=== PATIENT | male | born 1985 | race Caucasian/White ===

== ENCOUNTER 2019-02-15 16:55 | Outpatient (REF) | payer MEDICARE, MEDICAID, SELFPAY ==
[2019-02-15 20:43] LABS: HGB 14.2 g/dL (13.5-17.5); Mean Corpuscular Volume 90.9 fL (80-95); Mean Platelet Volume 9.6 fL (8.0-11.0); Platelet Count 275 x1000/uL (130-400); RBC 4.73 m/cumm (4.50-6.00); RBC Distribution Width 12.8 % (11.8-14.1); White Blood Cell Count 9.97 k/cumm (4.4-10.8)
[2019-02-15 20:54] LABS: ALT 24 U/L (16-63); AST 17 U/L (15-37); Albumin 4.2 g/dL (3.4-5.0); Alkaline Phosphatase 123 U/L (46-116); Anion Gap 9.5 mmol/L (3-11); BUN 13 mg/dL (7-18); Bilirubin, Total 0.4 mg/dL (0.2-1.0); CO2 28.5 mmol/L (21.0-32.0); CREATININE 1.01 mg/dL (0.70-1.30); Calcium 8.9 mg/dL (8.5-10.1); Calculated LDL 87 mg/dL; Chloride 102 mmol/L (98-107); Cholesterol 158 mg/dL (50-200); Glucose 89 mg/dL (70-100); HDL Cholesterol 50 mg/dL (40-60); Potassium 4.1 mmol/L (3.5-5.1); Sodium 140 mmol/L (136-145); Total Protein 7.7 g/dL (6.4-8.2); Triglyceride 108 mg/dL (30-150)
== END 2019-02-15 17:15 ==
LOC: NCHCN 16:55
PROVIDERS: PCP Internal Medicine; Visit Provider Internal Medicine
DX: Z79.899 Other long term (current) drug therapy (principal)
CPT/HCPCS: 80053; 80061; 83721; 85027

== ENCOUNTER 2020-09-08 12:13 | Outpatient (REF) | payer MEDICARE, MEDICAID, SELFPAY ==
[2020-09-10 13:08] LABS: COVID-19 RT-PCR UVMMC Result Negative (Negative)
== END 2020-09-08 12:14 | disposition home or self-care (01) ==
LOC: NCHCN 12:13
PROVIDERS: PCP Internal Medicine; Visit Provider Internal Medicine
DX: Z20.822 Contact with and (suspected) exposure to COVID-19 (principal)
CPT/HCPCS: U0003

== ENCOUNTER 2024-01-24 02:33 | Outpatient (CLI) | payer MEDICARE, MEDICAID, SELFPAY ==
[2024-01-24 12:42] LABS: HCT 47.6 % (40.0-50.0); HGB 15.7 g/dL (13.5-17.5); MCH 30.1 pg (27.0-33.0); MCV 91 fL (80-95); Platelet Count 286 10^3/uL (130-400); RBC 5.22 10^6/uL (4.36-5.78); RDW 12.2 % (11.8-14.1); RDW-SD 40.6 fL; WBC 8.15 10^3/uL (4.4-10.8)
[2024-01-24 13:42] LABS: ALT 36 U/L (16-63); AST 17 U/L (15-37); Albumin 4.5 g/dL (3.4-5.0); Alkaline Phosphatase 111 U/L (46-116); BUN 13 mg/dL (7-18); Bilirubin, Total 0.41 mg/dL (0.2-1.0); CREATININE 1.2 mg/dL (0.70-1.30); Calcium 9.7 mg/dL (8.5-10.1); Calculated LDL 112 mg/dL (<100); Chloride 102 mmol/L (98-107); Cholesterol 193 mg/dL (<200); Estimated GFR 79.88 (mL/min/1.73m2); Glucose 106 mg/dL (74-106); HDL Cholesterol 54 mg/dL (40-60); Sodium 141 mmol/L (136-145); Total Protein 8.5 g/dL (6.4-8.2); Triglyceride 136 mg/dL (<150)
== END 2024-01-24 02:34 | disposition home or self-care (01) ==
LOC: LOS 02:33
PROVIDERS: PCP Internal Medicine; Visit Provider Family Medicine
DX: Z00.00 Encounter for general adult medical examination without abnormal findings (principal)
CPT/HCPCS: 36415; 80053; 80061; 85027

== ENCOUNTER 2025-01-20 22:00 | Outpatient (REF) | payer MEDICARE, MEDICAID, SELFPAY ==
[2025-01-20 22:20] LABS: Abs Immature Grans 0.04 10^3/uL (0.0-0.06); HCT 47.9 % (40.0-50.0); HGB 15.5 g/dL (13.5-17.5); Immature Grans % 0.5 %; MCH 29.0 pg (27.0-33.0); MCHC 32.4 % (32.0-36.0); MCV 90 fL (80-95); MPV 9.1 fL (8.0-11.0); Platelet Count 306 10^3/uL (130-400); RBC 5.34 10^6/uL (4.36-5.78); RDW 12.3 % (11.8-14.1); RDW-SD 40.1 fL; WBC 8.88 10^3/uL (4.4-10.8)
[2025-01-20 22:31] LABS: ALT 31 U/L (16-63); AST 19 U/L (15-37); Albumin 4.5 g/dL (3.4-5.0); Alkaline Phosphatase 120 U/L (46-116); Anion Gap 8.1 mmol/L (3-11); BUN 12 mg/dL (7-18); Bilirubin, Total 0.3 mg/dL (0.2-1.0); CO2 29.9 mmol/L (21.0-32.0); Calcium 9.6 mg/dL (8.5-10.1); Chloride 103 mmol/L (98-107); Estimated GFR 98.80 (mL/min/1.73m2); Glucose 148 mg/dL (74-106); Potassium 4.4 mmol/L (3.5-5.1); Sodium 141 mmol/L (136-145); Total Protein 7.8 g/dL (6.4-8.2)
== END 2025-01-20 22:01 | disposition home or self-care (01) ==
LOC: NCHCN 22:00
PROVIDERS: PCP Internal Medicine; Visit Provider Family Medicine
DX: Z00.00 Encounter for general adult medical examination without abnormal findings (principal)
CPT/HCPCS: 80053; 85025

== ENCOUNTER 2025-05-12 02:14 | Outpatient (CLI) | payer MEDICARE, MEDICAID, SELFPAY ==
--- NOTE | 2025-05-12 15:13 | TELEFU_ITS ---
Date of service: 05/12/25 Time of Service: 14:00 Nutrition Note NOTE: Marin in with mom (lashae) to discuss eating for weight management/avoiding diabetes. Lashae had gestational diabetes - states multiple people in Adeel's biological father side have diabetes. She would like a second voice talking to adeel about food choices, espcially portions. 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 Relates sometimes he can go really overboard when it comes to portions - this morning did eat an entire container of cinnamon rolls. He is not picky per Lashae. She does a good job at offering home made foods - makes pancakes at 4 diameter and freezes in portions of 3 pancakes. Adeel will add excessive syrup sometimes and then likes bananas...with maple syrup as well. We discussed working together on small changes and we discussed first goal of campbell littlejohn to work his menus for the day to total no more than 14 servings of total CHO's. Rev'd handout with serving sizes. Reviewed 4 servings per meal with a couple servings set aside for snacks if needed. Also reviewed how maple syrup will contribute to this with ~1tbsp equaling 1 serving. they also received some sample menus to take home. Plan is to follow up 06/30/25 to review how the above goal is going and try to slowly add on via working with habits/routins at meals. Time Spent in Nutritional Counseling and Treatment: 15 min
== END 2025-05-12 02:15 | disposition home or self-care (01) ==
LOC: DS 02:15
PROVIDERS: PCP Internal Medicine; Visit Provider Dietitian, Registered
DX: Z71.3 Dietary counseling and surveillance (principal); E66.9 Obesity, unspecified
CPT/HCPCS: 00123; 97802